=== PATIENT | female | born 1965 | race Caucasian/White ===

== ENCOUNTER 2021-11-05 00:03 | Emergency (ER) | payer BC ==
[2021-11-05] MEDS ORDERED: HYDROCODON-ACE1 EAC4 PO (05:30)
[2021-11-05] MEDS ORDERED: AMOX TR-K CLV1 EAC4 PO (05:40)
== END 2021-11-05 05:58 | disposition home or self-care (01) ==
LOC: ER1 00:03
DX: S62.636B Displaced fracture of distal phalanx of right little finger, initial encounter for open fracture (principal); S61.452A Open bite of left hand, initial encounter; S61.451A Open bite of right hand, initial encounter; S51.852A Open bite of left forearm, initial encounter; S51.851A Open bite of right forearm, initial encounter; S01.551A Open bite of lip, initial encounter; S61.226A Laceration with foreign body of right little finger without damage to nail, initial encounter; I10 Essential (primary) hypertension; Z23 Encounter for immunization; W54.0XXA Bitten by dog, initial encounter
CPT/HCPCS: 12041; 73090; 73130; 90471; 90715; 93005; 99283